=== PATIENT | female | born 1980 | race African-American/Black ===

== ENCOUNTER 2018-08-25 09:11 | Inpatient (IN) ==
[2018-08-25] MEDS ORDERED: NS 1,000 ML IV ONE ×5 (09:22→19:19)
[2018-08-25] MEDS ORDERED: ZOFRAN IV ONE ×2 (09:22→11:42)
[2018-08-25 10:02] LABS: URINE SOURCE CLEAN CATCH
[2018-08-25 10:04] LABS: BASO# 0.03 X1000 (0.0-0.2); BASO% 0.5 % (0.0-0.8); EOS# 0.08 X1000 (0.0-0.7); EOS% 1.4 % (0.0-10.0); HEMATOCRIT 42.6 % (37.0-47.0); HEMOGLOBIN 13.9 g/dL (12.0-16.0); LYMPH# 1.47 X1000 (1.2-3.4); LYMPH% 25.6 % (20.5-51.1); MCH 27.3 PG (27-31); MCHC 32.6 g/dL (33-37); MCV 83.5 FL (81-99); MONO# 0.54 X1000 (0.11-0.59); MONO% 9.4 % (1.7-9.3); MPV 10.6 FL (7.4-10.4); NEUT# 3.63 X1000 (1.4-6.5); NEUT% 63.1 % (42.2-75.2); PLT 275 X1000 (130-400); RDW 14.5 % (11.5-14.5); WBC 5.75 X1000 (4.8-10.8)
[2018-08-25 10:07] LABS: BILIRUBIN URINE NEGATIVE (NEGATIVE); BLOOD URINE MODERATE (NEGATIVE); CLARITY CLEAR (CLEAR); COLOR YELLOW; GLUCOSE URINE NEGATIVE (NEGATIVE); KETONE URINE 15 mg/dL (NEGATIVE); LEUKOCYTES URINE NEGATIVE (NEGATIVE); NITRITE URINE NEGATIVE (NEGATIVE); PROTEIN URINE 30 mg/dL (NEGATIVE); SP GRAVITY URINE >= 1.030; UROBILINOGEN URINE 0.2 EU/dL (0.2-1.0)
[2018-08-25 10:12] LABS: URINE RBC <10 /HPF (<10); URINE WBC <10 /HPF (<10)
[2018-08-25 10:20] LABS: AGAP 11; ALB/GLOB RATIO 1.3; ALBUMIN 4.1 g/dL (3.5-5.0); ALKALINE PHOSPHATASE 65 U/L (32-104); AMYLASE 105 U/L (20-200); BUN 10 mg/dL (8-22); CALCIUM 9.2 mg/dL (8.8-10.2); CHLORIDE 109 mmol/L (98-107); COSMO 285; CREATININE 0.9 mg/dL (0.5-0.9); ESTIMATED GFR > 60; GLUCOSE 108 mg/dL (70-104); GOT 17 U/L (10-30); GPT 11 U/L (10-36); LIPASE 40 U/L (13-60); POTASSIUM 3.8 mmol/L (3.5-5.1); SODIUM 143 mmol/L (136-145); TCO2 23 mmol/L (25-35); TOTAL BILIRUBIN 0.27 mg/dL (0.20-1.00); TOTAL PROTEIN 7.3 g/dL (6.3-8.3)
[2018-08-25] MEDS ORDERED: PHENERGAN IV ONE ×2 (12:28→14:56)
[2018-08-25] MEDS ORDERED: SODIUM CHLORIDE 0.9% INJ ONE ×3 (12:28→19:19)
[2018-08-25] MEDS ORDERED: TIGAN IM ONE (14:51)
--- NOTE | 2018-08-25 15:49 | Diag Imaging Result Doc PS360 ---
EXAM: CT ABD/PELVIS W/IV CONT ONLY INDICATION: abd pain TECHNIQUE: This exam was performed using automated exposure control, adjustment of mA or kV according to patient size, and/or use of iterative reconstruction technique. COMPARISON: None. FINDINGS: There is excessive motion artifact throughout the study, which may limit fine details. There is a tiny hypodense focus at the dome of the liver that probably represents a small cyst. There is focal fatty infiltration adjacent to the falciform ligament. As imaged, the gallbladder, spleen, pancreas, adrenal glands, and kidneys are unremarkable. There has been a prior hysterectomy. There is a 3.1 cm pelvic cyst on the right that appears to be of ovarian origin. There is no evidence of appendicitis. There is a small hiatal hernia. The remainder of the GI tract is grossly unremarkable as imaged. No focal inflammatory changes, free abdominal gas, or free fluid is identified. IMPRESSION: 1.3.1 cm right ovarian cyst. 2.Other incidental/nonacute findings detailed above. No definite acute pathology. Electronically signed by Lan Albright 08/25/2018 3:46 PM
--- NOTE | 2018-08-25 16:09 | PROVIDER DOCUMENTATION ---
This chart was entered by Ele Holman Scribe, acting as scribe for Rigoberto Wang CRNP. HPI-General Adult - General Chief Complaint: N/V/D Stated Complaint: UTI Time Seen by Provider: 08/25/18 09:19 Source: patient Allergies/Adverse Reactions: Patient Allergies Allergy/AdvReac Type Severity Reaction Status Date / Time acetaminophen [From Percocet] Allergy ITCHING Verified 04/16/18 07:40 Latex, Natural Rubber Allergy RASH Verified 04/16/18 07:40 meperidine HCl * Allergy RASH Verified 04/16/18 07:40 [From Demerol] oxycodone HCl * Allergy ITCHING Verified 04/16/18 07:40 [From Percocet] Home Medications: Home Medication List Medication Instructions Recorded Confirmed Last Taken Type Alprazolam [Xanax] 1 mg PO QHS 06/01/14 03/30/18 02/10/17 14:00 History Clonidine [Catapres] 0.1 mg PO TID PRN PRN #10 tab 03/30/18 Unknown Rx Cephalexin 500 mg PO 4XDAY #20 tab 04/16/18 Unknown Rx Ondansetron [Zofran Odt] 4 mg PO Q6-8H PRN PRN #10 04/16/18 Unknown Rx tab.rapdis Nitrofurantoin Monohyd/M-Cryst 100 mg PO BID 7 Days #14 cap 06/03/18 Unknown Rx [Macrobid 100 mg Capsule] Ondansetron Odt [Zofran 4 mg Odt] 4 mg PO Q6H PRN PRN #20 tab 06/03/18 Unknown Rx Promethazine [Phenergan] 25 mg PO Q6H PRN PRN #20 tab 06/03/18 Unknown Rx - History of Present Illness -Gen Adult Nature of Presenting Problems: 38yof c/o nausea, vomiting, and diarrhea since yesterday. She reports she may have sick contacts at work. She denies fever, chills, dysuria, hematuria, cp, sob. Location of Pain/Injury: reports: none Pain Radiation: reports: no radiation Quality of Pain: reports: none Severity: reports: mild Onset/Duration: reports: 24 hours ago (yesterday) Timing: reports: still present, intermittent Context/Activities at Onset: reports: none Modifying Factors: improves with: nothing Associated Symptoms: reports: diarrhea, nausea, vomiting. denies: chest pain, shortness of breath Similar Symptoms Previously?: No Recently seen or treated by another doctor?: No Review of Systems - Adult - REVIEW OF SYSTEMS - ADULT Constitutional: denies: chills, fever Eyes: denies: discharge, dry eyes Ears, Nose, Mouth & Throat: denies: ear discharge, ear pain Cardiovascular: denies: chest pain, palpitations Respiratory: denies: cough, shortness of breath Gastrointestinal: reports: diarrhea, nausea, vomiting Genitourinary: denies: dysuria, hematuria Musculoskeletal: denies: back pain, muscle aches, muscle weakness Integumentary: reports: no symptoms reported Neurological: denies: dizziness/vertigo, headache/migraines Psychiatric: reports: no symptoms reported Endocrine: reports: no symptoms reported Hematologic/Lymphatic: reports: no symptoms reported Allergic/Immunologic: reports: no symptoms reported All Other Systems: Reviewed and Negative Past History - Adult - PAST MEDICAL HISTORY-ADULT Review of Records: reports: Old Records Reviewed, Nursing Assessment Review, Medications Reviewed Major Childhood Illnesses: reports: denies history Cardiovascular: reports: HTN Respiratory: reports: asthma Gastrointestinal: reports: hemorrhoids Obstetrical/Gynecological: reports: fibroids Genitourinary: reports: denies history Musculoskeletal: reports: chronic pain (right leg) Neurological: reports: denies history Psychiatric: reports: anxiety Endocrine/Immune: reports: anemia Other Conditions: reports: denies history - PRIOR SURGERIES/PROCEDURES Surgical/Procedure History: reports: hysterectomy, BTL, , breast (biopsy, R breast), other (breast biposy) - PRIOR HOSPITALIZATIONS Prior Hospitalizations: reports: for other non-related - IMMUNIZATION STATUS Childhood Immunizations: See Nurse Assessment Flu Vaccine: See Nurse Assessment - FAMILY HISTORY Family History: reviewed, not pertinent - SOCIAL HISTORY Smoking: cigarettes, less than 1 pack/day Substance Use: alcohol Living Situation: family Physical Exam-General - PHYSICAL EXAM-ADULT Initial Vital Signs Reviewed: Yes - CONSTITUTIONAL General Appearance: alert, no apparent distress - EYES Eyes: PERRL/EOMI, pink conjunctivae - NECK Neck: non-tender, supple - RESPIRATORY Respiratory: chest non-tender, lungs clear, normal breath sounds, no pleuratic chest pain, no respiratory distress, no accessory muscle use - CARDIOVASCULAR Cardiovascular: regular rate, rhythm, no murmur - GASTROINTESTINAL (ABDOMEN) Abdominal Exam: non tender, soft - MUSCULOSKELETAL Extremity: normal range of motion, non-tender, normal inspection, no pedal edema - SKIN Integumentary: normal color, warm/dry - NEUROLOGIC Neurologic: grossly normal, no motor/sensory deficits - PSYCHIATRIC Psych/Mental Status: normal mood/affect, normal thought content, normal thought process, oriented x 3 Progress - PLAN OF CARE/RESULTS Progress/Plan/Lab Results: Vital Signs - 8 hr 08/25/18 09:13 Pulse Rate 84 Respiratory Rate 18 Blood Pressure 182/108 O2 Sat by Pulse Oximetry 96 Orders Category Date Time Status Saline Loc DIRECTED Care 08/25/18 09:21 Active NPO Diet 08/25/18 09:21 Active AMYLASE [CHEM] Stat Lab 08/25/18 09:21 Uncollected CBC WITH ELECTRONIC DIFF [HEME] Stat Lab 08/25/18 09:21 Uncollected COMPREHENSIVE METABOLIC PANEL [CHEM] Stat Lab 08/25/18 09:21 Uncollected LIPASE [CHEM] Stat Lab 08/25/18 09:21 Uncollected TEST-URINE [PREG] Stat Lab 08/25/18 09:22 Uncollected UA NIMS W/REFLEX CULT [URINALYSIS] Stat Lab 08/25/18 09:20 Uncollected 0.9% Sodium Chloride Inj [Ns] 1,000 ml Med 08/25/18 09:22 Active IV 999 mls/hr Ondansetron [Zofran] Med 08/25/18 09:22 Discontinued 4 mg IV NOW ONE The PT failed PO challenge multiple times following a total of two doses of Zofr an, and two doses of Phenergran. I consulted Skip RAMACHANDRAN hospitalist who agreed to admit the pt to Dr. Horan. Result Diagrams: 08/25/18 09:39 08/25/18 09:39 - CONSULTS/PCP/HOSPITALIST Notification #1 *Consult/PCP/Hospitalist*: Skip RAMACHANDRAN Time Discussed: 16:09 Reason/Comments: Cyclic vomiting admit to Dr. Horan Consult Disposition: Will see in ED, Admit Departure - Departure Date of Disposition Decision: 08/25/18 Time of Disposition Decision: 14:48 DIAGNOSIS: Nausea and vomiting Disposition: ADMITTED INPATIENT 09 Certified Medical Emergency: Emergent Condition: Good Referrals and Follow-Ups: Javier Lowe MD [Primary Care Provider] - Discharge Education: Steps to Quit Smoking, [id number] - Critical Care Note This patient required my direct & personal management of CC.: No Attestation - Physician/ GEOVANNI Attestation Patient care was provided by Advanced Practice Provider:: Yes Advanced Practice Provider:: Rigoberto Wang Advanced Practice Provider documentation review:: The Mid-level provider documentation, treatment plan and medical decision making was reviewed by the physician who agrees with all treatment and medical decision making by the MLP. The physician spent face to face time with patient:: No Advanced Practice Provider documentation review:: Supervising physician onsite and consulted in the evaluation and care of this patient. The physician did not have a face to face encounter with the patient. This chart was documented by the indicated scribe, (Ele Holman, Francisca) and accurately reflects the services I performed and decisions made by me, Rigoberto Wang CRNP, as attested by the provider's signature.
[2018-08-25 16:43] LABS: UR AMPHETAMINES QUAL NONE DETECTED (NONE DETECT); UR BARBITUATES QUAL NONE DETECTED (NONE DETECT); UR BENZODIAZEPIN QUAL PRESUMPTIVE POSITIVE (NONE DETECT); UR CANNABINOIDS QUAL PRESUMPTIVE POSITIVE (NONE DETECT); UR COCAINE QUAL NONE DETECTED (NONE DETECT); UR METHADONE QUAL NONE DETECTED (NONE DETECT); UR OPIATES QUAL NONE DETECTED (NONE DETECT); UR OXYCODONE QUAL NONE DETECTED (NONE DETECT); UR PCP QUAL NONE DETECTED (NONE DETECT)
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
[2018-08-25] MEDS: PHENERGAN IV PRN (19:30)
[2018-08-25] MEDS: CATAPRES PO SCH (20:38)
[2018-08-25] MEDS: NICODERM PATCH TD SCH ×3 (20:40→20:46)
[2018-08-25] MEDS: SODIUM CHLORIDE 0.9% INJ SCH (20:40)
[2018-08-25] MEDS: PROTONIX IV SCH (20:40)
[2018-08-25] MEDS: ZOFRAN IV PRN (21:52)
[2018-08-26] MEDS: CATAPRES PO SCH (01:56)
--- NOTE | 2018-08-26 03:53 | HISTORY AND PHYSICAL ---
ADDENDUM TO HISTORY AND PHYSICAL: I agree with most components of history, physical, assessment and plan. In brief, Ms. Spicer is a 38-year-old lady with history of anxiety, chronic pain, who comes in with complaints of repeated episodes of intractable nausea and vomiting that started after midnight. My history is limited since at the time of my evaluation, the patient is extremely drowsy, answers a few questions and lapses back into sleep, which I think is related to the intramuscular anti-emetic trimethobenzamide that patient had received. In the emergency room, patient was found to have hypertensive with systolic blood pressure more than 180. At the time of my evaluation, the patient only complains of weakness and nausea, and then lapses back to sleep again. VITALS: Currently, vitals with temperature of 97.8 degrees, pulse 68, respiratory rate 16, blood pressure 150/87. PHYSICAL EXAMINATION: GENERAL: She does not appear in any acute distress. She is snoring at the time of my evaluation. HEENT: Oral cavity is moist. RESPIRATORY: No wheeze, rhonchi, crackles. Not tachycardic. CARDIOVASCULAR: S1, S2 normal. No murmur, rub, or gallop. ABDOMEN: Soft, obese, nontender. No lower extremity edema. NEUROLOGIC: She is drowsy. She opens eyes to strong verbal commands; however, lapses back to sleep again. ASSESSMENT: 1. Intractable nausea and vomiting. 2. Glucosuria, hemoglobinuria and ketonuria. 3. History of anxiety and chronic pain. 4. History of marijuana abuse. 5. Hypertensive urgency. PLAN: The patient has received intravenous fluid resuscitation. I will give her antiemetic antacid medications. Would observe her inside the hospital. This could be cyclic vomiting in the setting of marijuana abuse or acute gastroenteritis. I called patient's father to inform him about the patient's clinical condition; however, he did not warehouse picker and I have left a voice message. cc: MD SWEETIE Caban
[2018-08-26] MEDS: PHENERGAN IV PRN (04:59)
[2018-08-26] MEDS: SODIUM CHLORIDE 0.9% INJ SCH ×2 (05:00→20:32)
[2018-08-26] MEDS: CATAPRES PO ONE ×2 (06:02→06:41)
[2018-08-26] MEDS: ZOFRAN IV PRN (06:02)
[2018-08-26] MEDS ORDERED: CATAPRES PO ONE (06:21)
[2018-08-26 06:43] LABS: HEMATOCRIT 44.3 % (37.0-47.0); HEMOGLOBIN 14.8 g/dL (12.0-16.0); MCH 27.9 PG (27-31); MCHC 33.4 g/dL (33-37); MCV 83.4 FL (81-99); MPV 10.3 FL (7.4-10.4); RBC 5.31 XMIL (4.2-5.4); RDW 14.3 % (11.5-14.5); WBC 12.07 X1000 (4.8-10.8)
[2018-08-26 06:59] LABS: AGAP 14; BUN 6 mg/dL (8-22); CHLORIDE 102 mmol/L (98-107); COSMO 271; CREATININE 0.6 mg/dL (0.5-0.9); ESTIMATED GFR > 60; GLUCOSE 99 mg/dL (70-104); MAGNESIUM 1.9 mg/dL (1.5-2.7); POTASSIUM 3.4 mmol/L (3.5-5.1); SODIUM 137 mmol/L (136-145); TCO2 21 mmol/L (25-35)
[2018-08-26] MEDS: POTASSIUM CHLORIDE 20 MEQ/SWI 20 MEQ/100 ML IVPB IV SCH ×2 (09:44→13:40)
[2018-08-26] MEDS: NICODERM PATCH TD SCH (09:45)
[2018-08-26] MEDS ORDERED: NICOTINE GUM BUCCAL PRN (10:19)
[2018-08-26] MEDS ORDERED: XANAX PO PRN (10:32)
--- NOTE | 2018-08-26 10:59 | PROGRESS NOTE ---
DATE: 08/26/2018 SUBJECTIVE: She had multiple vomiting overnight as well. In the morning time, she is feeling a little better. She tells me that she has been smoking marijuana almost every day since she was 14 or 15 years old. I explained to her about cannabis hyperemesis syndrome, possibly marijuana contributing to cyclic vomiting since she has been having this problems almost every year since last 5 or 6 years. I discussed with her about stopping marijuana use and stopping tobacco. She verbalized understanding. I answered all of her questions currently. VITAL SIGNS: Temperature 97.9 degrees, pulse 79, respiratory rate 20, blood pressure 167/97, and saturating 97% on room air. She also tells me that she does not like clonidine a lot as it does not make her feel good. PHYSICAL EXAMINATION: General: She does not appear in any acute distress. She has significant erythema and congestion with edema affecting bilateral nasal turbinates. She mentioned that she has had some upper respiratory tract infection since last 3 or 4 days. Oral cavity is moist. No pallor. No cyanosis. No clubbing or icterus. Air entry bilaterally equal. No wheeze, rhonchi or crackles. S1, S2 normal. No murmur or gallop. Abdomen is soft. Mild tenderness in epigastric region because of frequent vomiting. Otherwise, no hepatosplenomegaly. Active bowel sounds. She has significant fat depositions in bilateral lower extremities. She also appears to have mild exophthalmos. LABORATORY: Labs today suggestive of hypokalemia, which I am repleting with intravenous potassium. She also wants to eat something. ASSESSMENT AND PLAN: 1. Intractable nausea and vomiting. Differential includes acute viral gastroenteritis considering her symptoms of diarrhea, upper respiratory infection related symptoms over last 3 to 4 days. Her nausea and vomiting could also be a symptom of cannabis hyperemesis syndrome. She is status post intravenous fluid resuscitation. Continue intravenous Zofran as needed and intravenous pantoprazole. I will monitor her on clear liquid diet for now. If her symptoms worsen or does not get better in the next 24 hours or so, I might consult Gastroenterology for need for EGD in the future. 2. Tobacco abuse and nicotine dependence. Continue nicotine patch and also start patient on nicotine gum as needed. 3. Cannabis hyperemesis syndrome. I extensively counseled patient about stopping use of any recreational substances. She agreed and verbalized understanding. 4. Hypertensive urgency. Start patient on amlodipine and p.r.n. labetalol if systolic blood pressure is more than 160 mmHg. 5. History of anxiety and chronic pain. I will resume her home medication including Xanax for now. I will try to hold off adding narcotics since she has chronic constipation, and I will add back as tolerated. DISPOSITION: The patient remains inside the hospital as we monitor her for resolution of her nausea and vomiting. The patient did not want me to convey the information about cannabis use to her father, which I stated I would keep in mind. Plan of care discussed with her. All of her questions have been answered. cc: Raymond Horan MD
[2018-08-26] MEDS: NORVASC PO SCH (15:39)
[2018-08-26] MEDS ORDERED: MOTRIN PO PRN (19:22)
[2018-08-26] MEDS: PROTONIX IV SCH (20:31)
[2018-08-26] MEDS: NORCO-7.5 PO PRN (21:11)
[2018-08-27 06:37] LABS: AGAP 10; BUN 4 mg/dL (8-22); CALCIUM 8.9 mg/dL (8.8-10.2); CHLORIDE 105 mmol/L (98-107); COSMO 273; CREATININE 0.7 mg/dL (0.5-0.9); ESTIMATED GFR > 60; GLUCOSE 80 mg/dL (70-104); POTASSIUM 3.4 mmol/L (3.5-5.1); SODIUM 139 mmol/L (136-145); TCO2 24 mmol/L (25-35)
[2018-08-27 06:41] LABS: HEMATOCRIT 42.1 % (37.0-47.0); HEMOGLOBIN 13.9 g/dL (12.0-16.0); MCH 27.9 PG (27-31); MCV 84.4 FL (81-99); MPV 10.6 FL (7.4-10.4); RBC 4.99 XMIL (4.2-5.4); RDW 14.6 % (11.5-14.5); WBC 5.81 X1000 (4.8-10.8)
[2018-08-27] MEDS: NICODERM PATCH TD SCH (08:42)
[2018-08-27] MEDS: NORVASC PO SCH (08:42)
[2018-08-27] MEDS: DULCOLAX PR SCH (10:05)
[2018-08-27] MEDS: POTASSIUM CHLORIDE 20 MEQ/SWI 20 MEQ/100 ML IVPB IV SCH ×2 (10:05→13:37)
[2018-08-27] MEDS: LACTULOSE PO SCH ×2 (10:05→20:06)
[2018-08-27] MEDS: XANAX PO SCH ×3 (10:11→20:07)
[2018-08-27] MEDS: ANUSOL-HC CREAM PR SCH ×2 (10:59→23:16)
[2018-08-27] MEDS: NORCO-7.5 PO PRN ×2 (12:29→20:06)
--- NOTE | 2018-08-27 13:45 | PROGRESS NOTE ---
DATE: 08/27/2018 INTERVAL HISTORY: The patient did not have any more nausea or vomiting since yesterday late morning. She has been eating clear liquid diet. She is hungry. She is complaining of some hemorrhoidal bleed which has now stopped. We discussed about advancing diet, giving her stool softeners. I answered all of her questions. PHYSICAL EXAMINATION: Vital signs: Temperature of 98.8 degrees, pulse 81, respiratory rate 16, blood pressure 132/76, saturating 99% on room air. General: Morbidly obese. Not in any acute distress. HEENT: Oral cavity is moist. Lungs: Air entry bilaterally equal. No wheeze, rhonchi, crackles. Cardiovascular: S1, S2 normal. No murmur or gallop. Abdomen: Soft, nontender. Extremities: No lower extremity edema. Rectal: On examination, she does have an external hemorrhoid which is not bleeding. Input and output suggests she has not had a bowel movement. LABORATORY DATA: Today suggestive of no leukocytosis. Normal hemoglobin, hematocrit, and platelet count. Hypokalemia which is being repleted. No positive microbiological data. IMAGING: No new imaging. ASSESSMENT AND PLAN: 1. Intractable nausea and vomiting with diarrhea, now resolved. Differential includes acute viral gastroenteritis as she did have prior history of upper respiratory tract infection prior to her vomiting and diarrhea started. Other differential also includes possibility of concomitant cannabis hyperemesis syndrome. She is status post intravenous fluid resuscitation. Continue intravenous Zofran, intravenous pantoprazole. Advance diet to GI soft diet. I will hold off on Gastroenterology consultation for EGD at the moment. 2. Tobacco abuse and nicotine dependence. Continue nicotine patch and p.r.n. nicotine gum. 3. Cannabis hyperemesis syndrome. Extensively counseled patient about stopping the use of recreational substances. She verbalized understanding. 4. Hypertensive urgency, currently resolved. Continue patient on amlodipine. 5. History of anxiety and chronic pain. Start patient on Xanax and continue acetaminophen for pain. 6. Constipation and external hemorrhoids. Start patient on lactulose and bisacodyl suppositories with hydrocortisone 2.5% cream. 7. Disposition. I will replete the patient's potassium today. If she continues to do better, my plan is to discharge her tomorrow home. Plan of care discussed with her, all of her questions have been answered. cc: Raymond Horan MD
[2018-08-27] MEDS ORDERED: KLOR-CON PO ONE (14:01)
[2018-08-27] MEDS: PROTONIX IV SCH (23:14)
[2018-08-28] MEDS: NICODERM PATCH TD SCH (09:48)
[2018-08-28] MEDS: NORVASC PO SCH (09:49)
[2018-08-28] MEDS: LACTULOSE PO SCH (09:49)
[2018-08-28] MEDS: DULCOLAX PR SCH (09:50)
[2018-08-28] MEDS: ANUSOL-HC CREAM PR SCH (09:50)
[2018-08-28] MEDS: XANAX PO SCH (10:03)
[2018-08-28 11:34] VITALS: BP 117/66
== END 2018-08-28 15:15 | disposition home or self-care (01) | DRG 392 ==
LOC: ED 09:11 → 4N 09:11 → OBSVTOIN 16:46
PROVIDERS: ATTEND Internal Medicine
CPT/HCPCS: 74177; 80048; 80053; 80101; 80301; 80307; 80324; 80345; 80346; 80353; 80358; 80361; 80365; 81001; 82150; 82550; 83690; 83735; 83992; 84439; 84443; 84481; 85025; 85027; 87088; 87275; 87276; 87804; 96361; 96374; 96375; 96376; 99285; A9270; C9113; G0431; G0434; G0479; G0480; J2405; J2550; J3250; J3480; J7030; Q9967; S0164

== ENCOUNTER 2019-02-18 08:31 | Inpatient (IN) ==
[2019-02-18] MEDS ORDERED: ZOFRAN IV ONE (09:23)
[2019-02-18] MEDS ORDERED: NS 1,000 ML IV ONE ×2 (09:23→17:11)
[2019-02-18] MEDS ORDERED: CATAPRES PO ONE ×2 (09:28→10:55)
[2019-02-18 09:32] LABS: BASO# 0.02 X1000 (0.0-0.2); BASO% 0.2 % (0.0-0.8); EOS# 0.01 X1000 (0.0-0.7); EOS% 0.1 % (0.0-10.0); HEMATOCRIT 48.3 % (37.0-47.0); HEMOGLOBIN 16.1 g/dL (12.0-16.0); IMM GRAN# 0.02 X1000 (0.0-0.04); IMM GRAN% 0.2 % (0.0-0.5); LYMPH# 1.44 X1000 (1.2-3.4); LYMPH% 16.1 % (20.5-51.1); MCH 27.4 PG (27-31); MCHC 33.3 g/dL (33-37); MCV 82.3 FL (81-99); MONO# 0.73 X1000 (0.11-0.59); MONO% 8.2 % (1.7-9.3); MPV 10.6 FL (7.4-10.4); NEUT# 6.73 X1000 (1.4-6.5); NEUT% 75.2 % (42.2-75.2); PLT 362 X1000 (130-400); RBC 5.87 XMIL (4.2-5.4); RDW 14.2 % (11.5-14.5); WBC 8.95 X1000 (4.8-10.8)
[2019-02-18 09:43] LABS: AGAP 13; ALBUMIN 4.7 g/dL (3.5-5.0); ALKALINE PHOSPHATASE 72 U/L (32-104); BUN 8 mg/dL (8-22); CALCIUM 9.9 mg/dL (8.8-10.2); CHLORIDE 101 mmol/L (98-107); COSMO 281; CREATININE 0.8 mg/dL (0.5-0.9); ESTIMATED GFR > 60; GLUCOSE 116 mg/dL (70-104); GOT 14 U/L (10-30); GPT 11 U/L (10-36); POTASSIUM 3.1 mmol/L (3.5-5.1); SODIUM 141 mmol/L (136-145); TCO2 27 mmol/L (25-35); TOTAL PROTEIN 8.3 g/dL (6.3-8.3)
[2019-02-18] MEDS ORDERED: POTASSIUM CHLORIDE 20 MEQ/SWI 20 MEQ/100 ML IVPB IV ONE (09:44)
--- NOTE | 2019-02-18 09:47 | Diag Imaging Result Doc PS360 ---
EXAM: CT HEAD W/O CONTRAST HISTORY: headache, elevated BP and vomiting TECHNIQUE: CT head without contrast COMPARISON: 12/08/2018 FINDINGS: No parenchymal hemorrhage. No epidural or subdural hematoma. No subarachnoid hemorrhage. No mass identified on this noncontrasted exam. No hydrocephalus. No sinus opacification. IMPRESSION: No hemorrhage. Negative brain CT without contrast. This exam was performed using automated exposure control, adjustment of mA or kV according to patient size, and/or use of iterative reconstruction technique. Electronically signed by Mark Vance 02/18/2019 9:44 AM
--- NOTE | 2019-02-18 10:03 | PROVIDER DOCUMENTATION ---
This chart was entered by Carolyn Thomas Scribe, acting as scribe for Erica Beltran MD. HPI-Headache - General Chief Complaint: Nausea/Vomiting Stated Complaint: NAUSEA, WEAK Time Seen by Provider: 02/18/19 08:58 Source: patient Allergies/Adverse Reactions: Patient Allergies Allergy/AdvReac Type Severity Reaction Status Date / Time acetaminophen [From Percocet] Allergy ITCHING Verified 02/18/19 08:39 Latex, Natural Rubber Allergy RASH Verified 02/18/19 08:39 meperidine HCl * Allergy RASH Verified 02/18/19 08:39 [From Demerol] oxycodone HCl * Allergy ITCHING Verified 02/18/19 08:39 [From Percocet] Home Medications: Home Medication List Medication Instructions Recorded Confirmed Last Taken Type Hydrocodone/Acetaminophen [[place] 1 tab PO Q6H PRN PRN 08/25/18 02/18/19 Unknown History 7.5-325 Tablet] Amlodipine [Norvasc] 5 mg PO DAILY #30 tab 08/28/18 02/18/19 Unknown Rx Hydrocortisone 2.5% Cream 1 applic CA BID #1 tube 08/28/18 02/18/19 Unknown Rx [Anusol-Hc Cream] Lactulose 30 ml PO BID #500 ml 08/28/18 02/18/19 Unknown Rx Cephalexin [Keflex] 500 mg PO BID #14 cap 02/17/19 02/18/19 Unknown Rx Ondansetron Odt [Zofran 4 mg Odt] 4 mg PO Q6H PRN PRN #20 tab 02/17/19 02/18/19 Unknown Rx Cetirizine [Zyrtec] 1 tab PO DAILY 02/18/19 02/18/19 Unknown History - History of Present Illness-Headache Nature of Presenting Problem: Patient is a 38 year old female who presents with headache. States nausea and vomiting with headache. Reports her blood pressure was elevated this morning. Denies dizziness. States being seen in the ED last night. Headache Location: reports: frontal Quality of Pain: reports: aching Severity: reports: moderate Onset/Duration: reports: last night Timing: reports: still present Associated Symptoms: reports: nausea, vomiting Similar Symptoms Previously?: Yes Recently seen or treated by another doctor?: Yes Review of Systems - Adult - REVIEW OF SYSTEMS - ADULT Constitutional: reports: no symptoms reported. denies: chills, fever, fatique Eyes: reports: no symptoms reported Ears, Nose, Mouth & Throat: reports: no symptoms reported Cardiovascular: reports: no symptoms reported Respiratory: reports: no symptoms reported Gastrointestinal: reports: see HPI, nausea, vomiting. denies: abdominal pain, diarrhea Genitourinary: reports: no symptoms reported Musculoskeletal: reports: no symptoms reported Integumentary: reports: no symptoms reported Neurological: reports: see HPI, headache/migraines (FERNANDEZ). denies: dizziness/vertigo, seizure, syncope Psychiatric: reports: no symptoms reported Endocrine: reports: no symptoms reported Hematologic/Lymphatic: reports: no symptoms reported Allergic/Immunologic: reports: no symptoms reported All Other Systems: Reviewed and Negative Past History - Adult - PAST MEDICAL HISTORY-ADULT Review of Records: reports: Old Records Reviewed, Social history reviewed & non- contributory. Major Childhood Illnesses: reports: denies history Cardiovascular: reports: HTN Respiratory: reports: asthma Gastrointestinal: reports: hemorrhoids Obstetrical/Gynecological: reports: fibroids Genitourinary: reports: denies history Musculoskeletal: reports: chronic pain (right leg) Neurological: reports: denies history Psychiatric: reports: anxiety Endocrine/Immune: reports: anemia Other Conditions: reports: denies history - PRIOR SURGERIES/PROCEDURES Surgical/Procedure History: reports: hysterectomy, BTL, , breast (biopsy, R breast), other (breast biposy) - PRIOR HOSPITALIZATIONS Prior Hospitalizations: reports: for other non-related - IMMUNIZATION STATUS Childhood Immunizations: See Nurse Assessment Flu Vaccine: See Nurse Assessment - FAMILY HISTORY Family History: reviewed, not pertinent - SOCIAL HISTORY Smoking: cigarettes, greater than 1 pack/day Provider spent 3-5 mins advising pt. on dangers of tobacco.: Discussed manners to quit use, and f/u contacts for add'l counseling. Substance Use: alcohol, marijuana Alcohol Use Frequency: occasionally Physical Exam- Neurological - Physical Exam-Neuro Initial Vital Signs Reviewed: Yes General Appearance: alert, no apparent distress. negative: lethargic Eye Exam: bilateral eye: normal inspection, PERRL, EOMI HENMT: normocephalic/atraumatic, other (dry mucous membranes). negative: angioedema Head Injury: no evidence of injury. negative: active bleeding, lacerations Respiratory: chest non-tender, lungs clear, normal breath sounds. negative: rales Cardiovascular: normal peripheral pulses, regular rate, rhythm. negative: tachycardia Abdominal Exam: normal bowel sounds, non tender, soft. negative: guarding, rigid Peripheral Pulses: radial (R): 2+, radial (L): 2+ Extremity: normal inspection. 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 negative: facial droop Motor/Sensory: no motor deficit, no sensory deficit, no pronator drift. negative: sensory deficit Neurologic: grossly normal. negative: aphasia, facial droop Integumentary: normal color, normal turgor, warm/dry. negative: diaphoresis, ecchymosis, jaundice Psych/Mental Status: normal mood/affect, oriented x 3. negative: anxious Progress - PLAN OF CARE/RESULTS Progress/Plan/Lab Results: Vital Signs - 8 hr 02/18/19 10:32 02/18/19 11:44 02/18/19 12:51 Temperature Pulse Rate 71 69 73 Respiratory Rate 16 28 H 25 H Blood Pressure 167/112 169/119 175/104 O2 Sat by Pulse Oximetry 96 97 98 02/18/19 14:45 02/18/19 16:25 Temperature 98.6 F Pulse Rate 83 78 Respiratory Rate 20 20 Blood Pressure 169/103 168/88 O2 Sat by Pulse Oximetry 94 L 98 Laboratory Results - last 24 hr 02/18/19 02/18/19 08:55 08:55 WBC 8.95 RBC 5.87 H Hgb 16.1 H Hct 48.3 H MCV 82.3 MCH 27.4 MCHC 33.3 RDW Std Deviation 14.2 Plt Count 362 MPV 10.6 H Immature Gran % (Auto) 0.2 Neut % (Auto) 75.2 Lymph % (Auto) 16.1 L [place] % (Auto) 8.2 Eos % (Auto) 0.1 Baso % (Auto) 0.2 Immature Gran # (Auto) 0.02 Neut # (Auto) 6.73 H Lymph # (Auto) 1.44 [place] # (Auto) 0.73 H Eos # (Auto) 0.01 Baso # (Auto) 0.02 Sodium 141 Potassium 3.1 L Chloride 101 Carbon Dioxide 27 Anion Gap 13 BUN 8 Creatinine 0.8 Estimated GFR/1.73 m2 > 60 BUN/Creatinine Ratio 10 Glucose 116 H Calculated Osmolality 281 Calcium 9.9 Total Bilirubin 0.30 AST 14 ALT 11 Alkaline Phosphatase 72 Total Protein 8.3 Albumin 4.7 Globulin 4.0 Albumin/Globulin Ratio 1.0 Orders Category Date Time Status Admit - [facility] - [facility] Routine AdmDCTranf 02/18/19 15:29 Active Activity - Bedrest with BSC ORDERED Care 02/18/19 15:29 Active Intake and Output-Strict ORDERED Care 02/18/19 15:29 Active Saline Loc NOW Care 02/18/19 09:36 Active Vital Signs Order Q1H Care 02/18/19 15:29 Active Z-Document. for Tele Applied ORDERED Care 02/18/19 15:31 Active Clear Liquid Diet Diet 02/18/19 15:[address] HEAD W/O CONTRAST [CT] Stat Exams 02/18/19 09:22 Completed CBC WITH DIFF [HEME] Routine Lab 02/19/19 06:00 Ordered CBC WITH ELECTRONIC DIFF [HEME] Stat Lab 02/18/19 08:55 Completed COMPREHENSIVE METABOLIC PANEL [CHEM] Routine Lab 02/19/19 06:00 Uncollected COMPREHENSIVE METABOLIC PANEL [CHEM] Stat Lab 02/18/19 08:55 Completed MAGNESIUM [CHEM] Routine Lab 02/19/19 06:[address] [URINALYSIS] Routine Lab 02/18/19 15:33 Uncollected URINE CULTURE [RM] Stat Lab 02/18/19 15:33 Uncollected 0.9% Sodium Chloride Inj [Ns] 1,000 ml Med 02/18/19 09:23 Discontinued IV 999 mls/hr CefTRIAXONE [Rocephin] 1 gm Med 02/18/19 16:00 Active 0.9% Sodium Chloride Inj [Ns] 50 ml IV Q24H Clonidine [Catapres] Med 02/18/19 09:28 Discontinued 0.1 mg PO NOW ONE Clonidine [Catapres] Med 02/18/19 10:55 Discontinued 0.1 mg PO NOW ONE Enalaprilat [Vasotec] Med 02/18/19 13:38 Discontinued 1.25 mg IV NOW ONE Haloperidol Lactate [Haldol] Med 02/18/19 15:50 Discontinued 5 mg IM NOW ONE Labetalol Med 02/18/19 15:34 Discontinued 10 mg IV Q4H PRN PRN Labetalol Med 02/18/19 15:52 Active 10 mg IV Q4H PRN PRN Morphine Med 02/18/19 15:32 Active 2 mg IV Q4H PRN PRN Ondansetron [Zofran] Med 02/18/19 09:23 Discontinued 4 mg IV NOW ONE Ondansetron [Zofran] Med 02/18/19 15:29 Active 4 mg IV Q4H PRN PRN Pantoprazole [Protonix] Med 02/18/19 16:00 Active 40 mg IV Q24H Potassium Chloride 20 Meq/Swi Med 02/18/19 09:44 Discontinued 20 meq in 100 ml IV ONCE Promethazine [Phenergan] Med 02/18/19 10:55 Discontinued 12.5 mg IV NOW ONE Promethazine [Phenergan] Med 02/18/19 15:38 Discontinued 25 mg IM NOW ONE Sodium Chloride 0.9% Med 02/18/19 16:00 Active 10 ml INJ DIRECTED Sodium Chloride 0.9% Med 02/18/19 10:55 Discontinued 10 ml INJ NOW ONE Telemetry [OM.EQ] Routine Oth 02/18/19 15:29 Active EKG [EKG] Stat Ther 02/18/19 09:45 Draft Transfer/Admit Order [TRANSFER] Routine Transfer 02/18/19 15:37 Ordered Pt headache, nausea and vomiting improved. Bp continues to be elevated. was administered clonidine 0.1 mg x2 and Amlodipine and IV enalaprilat. The BP continues to be in 160's/110's d/w dr Briscoe, admit for observation Result Diagrams: 02/18/19 08:55 02/18/19 08:55 - EKG 1 Time of EKG reading by physician:: 09:53 EKG Read and Signed by:: Erica Beltran EKG Interpretation (*Must complete 3 of following elements*): Abnormal Rate: 64 Rhythm: normal sinus rhythm [place]: normal CA Interval: normal Comments: possible left atrial enlargement - CT/MRI 1 CT Study: Head Impression: See EMR Report ( EXAM: CT HEAD W/O CONTRAST HISTORY: headache, elevated BP and vomiting TECHNIQUE: CT head without contrast COMPARISON: 12/08/2018 FINDINGS: No parenchymal hemorrhage. No epidural or subdural hematoma. No subarachnoid hemorrhage. No mass identified on this noncontrasted exam. No hydrocephalus. No sinus opacification. IMPRESSION: No hemorrhage. Negative brain CT without contrast. This exam was performed using automated exposure control, adjustment of mA or kV according to patient size, and/or use of iterative reconstruction technique. Electronically signed by Mark Vance 02/18/2019 9:44 AM 02/18/19 0944 Interpreting Physician: Mark Vance MD Dictated Date/Time: 02/18/19 0942 cc: Erica eBltran MD; Javier Lowe MD) - CONSULTS/PCP/HOSPITALIST Notification #1 *Consult/PCP/Hospitalist*: Dr. Briscoe Time Discussed: 14:56 Reason/Comments: Dr. Beltran consulted with Dr. Briscoe about patient Consult Disposition: Will see in ED, Admit Departure - Departure Date of Disposition Decision: 02/18/19 Time of Disposition Decision: 14:57 DIAGNOSIS: Nausea & vomiting, Uncontrolled hypertension, Headache Disposition: ADMITTED INPATIENT 09 Certified Medical Emergency: Emergent Condition: Stable - Critical Care Note This patient required my direct & personal management of CC.: No Attestation - Physician/ GEOVANNI Attestation Patient care was provided by Advanced Practice Provider:: No The physician spent face to face time with patient:: Yes Advanced Practice Provider documentation review:: Supervising physician onsite and consulted in the evaluation and care of this patient. The physician did have a face to face encounter with the patient. This chart was documented by the indicated scribe, (Carolyn Thomas Scribe) and accurately reflects the services I performed and decisions made by me, Erica Beltran MD, as attested by the provider's signature.
[2019-02-18] MEDS ORDERED: SODIUM CHLORIDE 0.9% INJ ONE (10:55)
[2019-02-18] MEDS ORDERED: PHENERGAN IV ONE (10:55)
--- NOTE | 2019-02-18 11:28 | EKG Report ---
Test Performed on : 02/18/2019 09:53:47 AM Test Reason : hypokalemia Blood Pressure : / mmHG Vent. Rate : 064 BPM Atrial Rate : 064 BPM P-R Int : 120 ms QRS Dur : 074 ms QT Int : 424 ms P-R-T Axes : 054 -13 021 degrees QTc Int : 437 ms Normal sinus rhythm. Possible Left atrial enlargement Borderline ECG When compared with ECG of 18-NOV-2017 15:44, No significant change was found Unconfirmed Result
[2019-02-18] MEDS ORDERED: VASOTEC IV ONE (13:38)
[2019-02-18] MEDS ORDERED: ZOFRAN IV PRN (15:29)
[2019-02-18] MEDS ORDERED: MORPHINE IV PRN (15:32)
[2019-02-18] MEDS ORDERED: LABETALOL IV PRN ×2 (15:34→15:52)
[2019-02-18] MEDS ORDERED: PHENERGAN IM ONE (15:38)
[2019-02-18] MEDS ORDERED: HALDOL IM ONE (15:50)
[2019-02-18] MEDS ORDERED: SODIUM CHLORIDE 0.9% INJ SCH (16:00)
[2019-02-18] MEDS ORDERED: PROTONIX IV SCH (16:00)
[2019-02-18] MEDS ORDERED: ROCEPHIN 1 GM in NS 50 ML IV SCH (16:00)
--- NOTE | 2019-02-18 18:46 | HISTORY AND PHYSICAL ---
CHIEF COMPLAINT: Is nausea, vomiting, headache, hypertension. HISTORY OF PRESENT ILLNESS: This is a 38-year-old female with a history of hypertension, cannabinoid hyperemesis syndrome, chronic pain, nicotine dependence who presents to the emergency room complaining of nausea, vomiting, headache and high blood pressure since Sunday. She states that this began with nausea, vomiting. She reports smoking pot earlier last week. She developed nausea, vomiting during the day Sunday, was unable to keep her blood pressure nor her other medications down. She developed a headache with light sensitivity over the last 24 hours. On arrival to the emergency room she was noted to have blood pressures ranging from 154 to 169 over 104 to 119 for which she was given 0.2 clonidine, 1.25 of Vasotec. At the time of my exam she complains of a headache, light sensitivity, nausea. PAST MEDICAL HISTORY: 1. Cannabinoid hyperemesis syndrome. 2. Intractable nausea, vomiting. 3. Tobacco abuse with nicotine dependence. 4. Hypertension with hypertensive urgency. 5. Chronic pain. 6. Chronic constipation. PAST SURGICAL HISTORY: 1. Breast biopsy. 2. . 3. Hysterectomy. 4. Tubal ligation. SOCIAL HISTORY: She smokes about a pack a day. She does smoke marijuana. She denies alcohol use. She is with children. ALLERGIES: Percocet, natural rubber, latex and Demerol. HOME MEDICATIONS: A list will be obtained by the nursing staff once verified review and restart as appropriate. REVIEW OF SYSTEMS: Discussed with the patient with pertinent positives stated in the HPI. She denies any syncope or dizziness, any chest pain or palpitations, shortness of breath, cough, fever, chills, any black or bloody vomitus or stools, any hematuria, dysuria, frequency, any hematuria. PHYSICAL EXAMINATION: GENERAL: This is a 38-year-old female who is lying in a dark room in no distress. VITAL SIGNS: Blood pressure is 175/116 with a heart rate of 83, respirations are 20, temperature is 98.7 degrees with O2 saturations 96-98% on room air. HEENT: Pupils equal, round, react to light. EOMs are intact. Sclerae anicteric. Head is normocephalic, atraumatic. Mucous membranes are moist. NECK: Supple. Trachea midline. No JVD. CARDIOVASCULAR: Regular rate and rhythm. S1 and S2 appreciated. Calves are nontender bilateral with peripheral pulses palpable x4 extremities. PULMONARY: Breath sounds are clear. No increased work of breathing noted. Chest rises and fall symmetric with respiration. Chest wall is nontender to palpation. GASTROINTESTINAL: Abdomen soft, nontender, nondistended. Bowel sounds in all 4 quadrants. GENITOURINARY: No CVA or suprapubic tenderness. NEUROLOGIC: She is alert, she is oriented x3. SKIN: Warm and dry. LABS: WBC is 8.9 with hemoglobin 16.1, hematocrit 48.3, platelets of 362,000. Sodium 141, potassium 3.1, BUN 8, creatinine 0.8, glucose of 116. CT of the head revealed no hemorrhage, negative brain CT without contrast. ASSESSMENT AND PLAN: 1. Uncontrolled hypertension in a patient with hypertension. 2. Headache with light sensitivity. 3. Nausea and vomiting. 4. Cannabinoid hyperemesis syndrome. 5. Tobacco use and abuse. 6. Presumed urinary tract infection. PLAN: The patient will be admitted to ICU. She will be placed on telemetry for close monitoring. Will start labetalol q.4 hours p.r.n. systolic blood pressure greater than 160 or diastolic blood pressure greater than 110. Will give morphine 2 mg q.4 hours p.r.n. pain as the patient does take chronic [place] although she is unable to hold this down due to nausea. Give Zofran for nausea. Will send urine as well as urine culture, stop her p.o. Keflex, will place her on Rocephin and further antibiotics will be culture driven. We will give Haldol 5 mg IM x1 for cannabinoid hyperemesis. She will be placed on clear liquid diet as tolerated and we can advance as nausea, vomiting improve. Check a CBC, CMP, magnesium in the morning, give Protonix IV and once she is able to take oral medications she can transition over to oral. For DVT prophylaxis we will use SCDs. Further treatments pending hospital course. Dictated by CHELSI Mccoy for Richy Briscoe MD cc: CHELSI Mccoy MD
[2019-02-18] MEDS ORDERED: ZOSTRIX TOP SCH (21:00)
--- NOTE | 2019-02-18 21:17 | HISTORY AND PHYSICAL ---
CHIEF COMPLAINT: Nausea and vomiting. ADDENDUM: Patient seen and examined by myself. Full note dictated and discussed with nurse practitioner. Patient presented to the hospital with nausea, vomiting, abdominal pain. She does apparently have a history of marijuana usage. She was given medication in the ER. Her nausea seems to be improved. We are going to watch her overnight. Discussed with her that marijuana does in fact cause hyperemesis and certainly is likely the cause of her symptoms. cc: Richy Briscoe MD
[2019-02-19 02:41] LABS: URINE SOURCE VOIDED
[2019-02-19 03:29] LABS: CLARITY SL. CLOUDY (CLEAR); COLOR AMBER
[2019-02-19 03:30] LABS: BILIRUBIN URINE NEGATIVE (NEGATIVE); BLOOD URINE TRACE (NEGATIVE); GLUCOSE URINE NEGATIVE (NEGATIVE); KETONE URINE TRACE mg/dL (NEGATIVE); LEUKOCYTES URINE 2+ (NEGATIVE); NITRITE URINE NEGATIVE (NEGATIVE); PROTEIN URINE TRACE mg/dL (NEGATIVE); UROBILINOGEN URINE NORMAL
[2019-02-19 03:31] LABS: URINE BACTERIA 3+ /HFP; URINE EPITHELIAL CELLS >10 /HPF (<10); URINE RBC <10 /HPF (<10); URINE WBC 20-40 /HPF (<10)
[2019-02-19] MEDS: NS 1,000 ML IV SCH ×2 (04:38)
[2019-02-19 06:20] LABS: BASO# 0.03 X1000 (0.0-0.2); BASO% 0.4 % (0.0-0.8); EOS# 0.19 X1000 (0.0-0.7); EOS% 2.7 % (0.0-10.0); HEMOGLOBIN 13.5 g/dL (12.0-16.0); IMM GRAN# 0.01 X1000 (0.0-0.04); IMM GRAN% 0.1 % (0.0-0.5); LYMPH# 2.62 X1000 (1.2-3.4); LYMPH% 37.2 % (20.5-51.1); MCH 27.1 PG (27-31); MCHC 32.1 g/dL (33-37); MCV 84.2 FL (81-99); MONO# 0.81 X1000 (0.11-0.59); MONO% 11.5 % (1.7-9.3); MPV 10.1 FL (7.4-10.4); NEUT# 3.39 X1000 (1.4-6.5); NEUT% 48.1 % (42.2-75.2); PLT 272 X1000 (130-400); RBC 4.99 XMIL (4.2-5.4); RDW 14.2 % (11.5-14.5); WBC 7.05 X1000 (4.8-10.8)
[2019-02-19 06:24] LABS: AGAP 8; ALBUMIN 3.4 g/dL (3.5-5.0); ALKALINE PHOSPHATASE 49 U/L (32-104); BUN 8 mg/dL (8-22); CALCIUM 8.3 mg/dL (8.8-10.2); CHLORIDE 105 mmol/L (98-107); COSMO 276; CREATININE 0.8 mg/dL (0.5-0.9); ESTIMATED GFR > 60; GLUCOSE 99 mg/dL (70-104); GOT 11 U/L (10-30); GPT 7 U/L (10-36); MAGNESIUM 1.8 mg/dL (1.5-2.7); POTASSIUM 3.3 mmol/L (3.5-5.1); SODIUM 139 mmol/L (136-145); TCO2 25 mmol/L (25-35)
[2019-02-19 07:48] VITALS: BP 109/59
[2019-02-19] MEDS ORDERED: KLOR-CON PO ONE (08:42)
--- NOTE | 2019-02-20 02:22 | DISCHARGE SUMMARY ---
ADMISSION DATE: 02/18/2019 DISCHARGE DATE: 02/19/2019 DIAGNOSES: 1. Cannabinoid hyperemesis syndrome. 2. Hypertension. 3. Headache, resolved. 4. Nausea and vomiting, resolved. 5. Presumed urinary tract infection. Culture pending. DIAGNOSTICS: 1. 02/18/2019 CT of the head revealed negative, no hemorrhage, negative brain CT without contrast. 2. Urine culture pending. HOSPITAL COURSE: Ms Spicer presented to the emergency room complaining of nausea, vomiting, headache, and hypertension. She states that she smoked pot earlier in the week. She developed nausea, vomiting during the day Sunday. Has been unable to keep any food nor her blood pressure down during this time. Initial blood pressure was 150-160s over 104-119 for which she was given clonidine and Vasotec. Blood pressures did decrease and have remained in the 110s to 130s over 60s since. Headache resolved. She was given Haldol 5 mg as well as capsaicin cream to rub on her abdomen. Symptoms resolved within about 45 minutes of the Haldol and they did not recur. She tolerated clear liquids and then a regular diet with no further nausea, vomiting. Thankfully, she is ready for discharge. DISCHARGE VITAL SIGNS: Blood pressure is 109/59 with a heart rate of 60, respirations 18, temperature 98.3 degrees oral with room air saturations 99% to 100%. DISCHARGE PHYSICAL EXAMINATION: Cardiovascular: Regular rate and rhythm. S1 and S2 appreciated. Calves are nontender bilateral with peripheral pulses palpable x4 extremities. Pulmonary: Breath sounds are clear. No increased work of breathing noted. Chest rises and falls symmetric with respiration. Gastrointestinal: Abdomen is soft, nontender, nondistended with bowel sounds in all 4 quadrants. Genitourinary: No CVA nor suprapubic tenderness. Neurologic: She is alert and oriented x3. DISCHARGE MEDICATIONS: 1. Norvasc 5 mg p.o. daily. 2. Zyrtec 1 tablet p.o. daily. 3. [place] 7.5/325 one p.o. q.6 hours p.r.n. 4. Lactulose 30 mL p.o. b.i.d. 5. Zofran ODT 4 mg p.o. q.6 hours p.r.n. FOLLOWUP: Dr. Lowe, her primary care physician, in the next 1 to 2 weeks, sooner if needed. We did discuss cannabinoid hyperemesis syndrome with and the fact that she has been hospitalized with this in the past. We discussed that this will continue with each use of cannabis. She did voice understanding. She is being discharged home in stable condition with family members. TIME SPENT: This is a greater than 30 minute discharge. Dictated by CHELSI Mccoy for Richy Briscoe MD cc: CHELSI Mccoy MD
--- NOTE | 2019-02-20 23:18 | DISCHARGE SUMMARY ---
ADMISSION DATE: 02/18/2019 DISCHARGE DATE: 02/19/2019 ADDENDUM: Patient seen and examined by myself. Full note dictated and discussed with nurse practitioner. On discharge, patient is awake, alert. She is in no distress. Her nausea has improved. Her blood pressure is improved. Did discuss with her that it is highly likely that her marijuana was not pure and had stimulant in it and that is the reason for her hyperemesis as well as her marked elevation in blood pressure. Discussed with her the importance of simply stopping marijuana to prevent this from happening in the future. cc: Richy Briscoe MD
== END 2019-02-19 09:13 | disposition home or self-care (01) | DRG 897 ==
LOC: P.ED 08:31 → P.EDIPHOLD 17:00
PROVIDERS: ADMIT Family Medicine